=== PATIENT | male | born 1970 | race Caucasian/White ===

== ENCOUNTER 2016-07-31 22:58 | Inpatient (IN) | payer OTHER ==
[~2016-07-31] VITALS: Ht 180.3 cm; Wt 92.2 kg
[~2016-07-31 22:58] MED LIST: TRAM50TA2 PO
--- NOTE | 2016-08-01 03:52 | ERD ---
ER Documentation Chief Complaint Date/Time DATE: 08/01/16 TIME: 03:51 Chief Complaint headache and dizzy since last night and nauseated HPI 45-year-old male presents here in emergency department for complaints of headache, dizziness, discussed it as a spinning sensation and nausea started today. Patient is complaining of headache, throbbing pain, 6/10 scale, not better with anything, accompanied with nausea and dizziness. Patient is worried since he has history of liver cirrhosis, had a history of encephalopathy before. Patient denies any abdominal pain. Patient denies any flank pain. Patient does not have any vomiting. Patient denies any leg swelling. Patient denies any abdominal swelling. ROS All systems reviewed and are negative except as per history of present illness. Medications Home Meds Active Scripts Tramadol HCl (Tramadol HCl) 50 Mg Tablet, 50 MG PO Q4 Y for PAIN, #20 TAB Prov:MIKAL HAMPTON PA-C 02/09/16 Allergies Allergies: Coded Allergies: No Known Allergy (Unverified , 02/09/16) PMhx/Soc History of Surgery: No Anesthesia Reaction: No Hx Neurological Disorder: No Hx Respiratory Disorders: No Hx Cardiac Disorders: Yes (htn) Hx Psychiatric Problems: No Hx Miscellaneous Medical Probl: Yes (cirrhosis of liver ) Hx Alcohol Use: Yes Hx Substance Use: No Hx Tobacco Use: Yes FmHx Family History: No coronary disease, No diabetes, No other Physical Exam Vitals Vital Signs Date Time Temp Pulse Resp B/P Pulse Ox O2 Delivery O2 Flow Rate FiO2 07/31/16 23:33 98.3 77 18 130/62 99 Physical Exam GENERAL: The patient is well developed and appropriate for usual state of health, in no apparent distress. CHEST: Clear to auscultation bilaterally. There are no rales, wheezes or rhonchi. HEART: Regular rate and rhythm. No murmurs, clicks, rubs or gallops. No S3 or S4. ABDOMEN: Soft, nontender and nondistended. Good bowel sounds. No rebound or guarding. No gross peritonitis. No gross organomegaly or masses. No Bradshaw sign or McBurney point tenderness. BACK: No midline or flank tenderness. EXTREMITIES: Equal pulses bilaterally. There is no peripheral clubbing, cyanosis or edema. No focal swelling or erythema. Full range of motion. Grossly neurovascularly intact. NEURO: Alert and oriented. Cranial nerves 2-12 intact. Motor strength in all 4 extremities with 5/5 strength. Sensation grossly intact. Normal speech and gait. SKIN: There is no apparent rash or petechia. The skin is warm and dry. HEMATOLOGIC AND LYMPHATIC: There is no evidence of excessive bruising or lymphedema. No gross cervical, axillary, or inguinal lymphadenopathy. Result Diagram: 08/01/16 0428 08/01/16 0428 Results 24 hrs Laboratory Tests Test 08/01/16 04:27 08/01/16 04:28 08/01/16 04:31 Ammonia 101umol/l Alanine Aminotransferase (ALT/SGPT) 81IU/L Albumin 2.5g/dl Albumin/Globulin Ratio 0.55 Alkaline Phosphatase 244IU/L Anion Gap 13 Aspartate Amino Transf (AST/SGOT) 133IU/L Blood Morphology Comment Blood Urea Nitrogen 23mg/dl Calcium Level 7.8mg/dl Carbon Dioxide Level 25mmol/L Chloride Level 109mmol/L Creatinine 0.59mg/dl Direct Bilirubin 0.00mg/dl Globulin 4.50g/dl Glucose Level 83mg/dl Hematocrit 27.6% Hemoglobin 9.5g/dl Indirect Bilirubin 0.8mg/dl Lipase 356U/L Mean Corpuscular Hemoglobin 34.7pg Mean Corpuscular Hemoglobin Concent 34.4g/dl Mean Corpuscular Volume 100.9fl Mean Platelet Volume 11.2fl Platelet Count 2610^3/UL Potassium Level 4.2mmol/L Red Blood Count 2.7410^6/ul Red Cell Distribution Width 16.2% Sodium Level 143mmol/L Total Bilirubin 0.8mg/dl Total Protein 7.0g/dl White Blood Count 3.510^3/ul Urine Bilirubin NEGATIVE Urine Clarity CLEAR Urine Color YELLOW Urine Glucose NEGATIVE% Urine Hemoglobin TRACE Urine Ketones TRACE Urine Leukocyte Esterase NEGATIVE Urine Microscopic RBC 0-2/HPF Urine Microscopic WBC 0-2/HPF Urine Nitrite NEGATIVE Urine Specific [place]uck 1.025 Urine Squamous Epithelial Cells FEW Urine Total Protein NEGATIVE Urine Urobilinogen 1.0 E.U./dL Urine pH 6.0 PROCEDURE: CT BRAIN WITHOUT CONTRAST CLINICAL INDICATION: 45-year-old male with dizziness. TECHNIQUE: The study was performed utilizing [employer] 64-slice CT scanner. Direct axial sections were obtained from the foramen magnum to the vertex without the use of intravenous contrast material. Sagittal and coronal reformations were obtained. Automated exposure control and iterative reconstruction techniques were utilized for this examination. The images were viewed on a PACS workstation. CTD/vol = 45.0 mGy; Total Exam DLP = 810.3 mGy- cm. COMPARISON: None. FINDINGS: There is mild prominence of the sulci and cisternal spaces consistent with diffuse volume loss. Otherwise, the ventricles have a normal shape and position. There is no evidence for mass effect or midline shift. There are no intracranial areas of abnormal attenuation. There is no evidence for acute intra or extra-axial blood. The bony calvarium is intact. The right globe appears to be shrunken with diffuse increased density presumably from prior hemorrhage. There is minimal mucosal thickening within the ethmoid air cells bilaterally. No air-fluid levels are noted. The right mastoid air cells are sclerotic consistent with prior mastoid disease. The left mastoid air cells are without significant soft tissue. IMPRESSION: 1. Mild diffuse volume loss. 2. Shrunken right globe with diffuse increased density presumably from prior hemorrhage. Clinical correlation is necessary. 3. Minimal mucosal thickening ethmoid air cells. 4. Sclerotic right mastoid air cells consistent with prior mastoid disease. .Asael Arellano MD, MD Date Time Electronically viewed and signed by .Asael Arellano MD, on 08/01/2016 05:13 .M/ CC: DAMARIS BRICE PL[employer]ER TAILER I discussed this case with my attending physician, Dr. Kendall, recommending to give patient lactulose 40 g here in emergency department, repeat troponin level in 2 hours, will be signed out to morning attending physician for reevaluation of ammonia level. And will be transferred to ER 1 for further evaluation. Procedures/MDM Medical Decision Making: Patient's symptoms most likely consistent from elevated ammonia level, as per discussion with my attending physician, Dr. Kendall, patient will be given lactulose here in emergency department, repeat ammonia level will be done in 2 hours after taking medications, patient will be transferred to ER 1 for further evaluation after repeat ammonia level. Patient is stable at this time. No symptoms of any respiratory distress, no symptoms of any neurologic emergencies at this time. CT scan of the brainis not show any acute neurologic emergencies at this time. Departure Diagnosis: Primary Impression: Hyperammonemia Condition: DAMARIS Astudillo NP Aug 01, 2016 03:52
[2016-08-01 04:54] LABS: HEMATOCRIT 27.6 % (42.0-52.0); HEMOGLOBIN 9.5 g/dl (14.0-18.0); MEAN CORPUSCULAR HEMOGLOBIN 34.7 pg (29.0-33.0); MEAN CORPUSCULAR HGB CONC 34.4 g/dl (32.0-37.0); MEAN CORPUSCULAR VOLUME 100.9 fl (82.0-101.0); MEAN PLATELET VOLUME 11.2 fl (7.4-10.4); RED BLOOD COUNT 2.74 10^6/ul (4.70-6.10); RED CELL DISTRIBUTION WIDTH 16.2 % (11.5-14.5); UNCORRECTED WBC 3.5 10^3/ul (4.8-10.8); WHITE BLOOD COUNT 3.5 10^3/ul (4.8-10.8)
[2016-08-01 04:55] LABS: ALBUMIN 2.5 g/dl (3.3-4.9); POTASSIUM 4.2 mmol/L (3.5-5.1)
[2016-08-01 04:55] LABS: ADD UMIC YES; URINE BILIRUBIN (Dip) NEGATIVE (NEGATIVE); URINE BLOOD (Dip) TRACE (NEGATIVE); URINE COLOR YELLOW (YELLOW); URINE GLUCOSE (Dip) NEGATIVE (NEGATIVE); URINE KETONES (Dip) TRACE (NEGATIVE); URINE LEUKOCYTE ESTERASE (Dip) NEGATIVE (NEGATIVE); URINE NITRITE (Dip) NEGATIVE (NEGATIVE); URINE TOTAL PROTEIN (Dip) NEGATIVE (NEGATIVE); URINE UROBILINOGEN (Dip) 1.0 E.U./dL (0.1-1.0)
[2016-08-01 04:57] LABS: BILIRUBIN,INDIRECT 0.8 mg/dl (0-1.1); BILIRUBIN,TOTAL 0.8 mg/dl (0.2-1.3); CREATININE 0.59 mg/dl (0.61-1.24)
[2016-08-01 04:58] LABS: ALBUMIN/GLOBULIN RATIO 0.55; CALCIUM 7.8 mg/dl (8.4-10.2)
[2016-08-01 05:01] LABS: CONDITION 1
[2016-08-01 05:03] LABS: PLATELET COUNT 26 10^3/UL (140-440)
[2016-08-01 05:04] LABS: SQUAMOUS EPITHELIAL CELL,UR FEW; URINE RBCS 0-2 /HPF (0)
--- NOTE | 2016-08-01 05:13 | RADRPT ---
PROCEDURE: CT BRAIN WITHOUT CONTRAST CLINICAL INDICATION: 45-year-old male with dizziness. TECHNIQUE: The study was performed utilizing [employer] 64-slice CT scanner. Direct axial sections were obtained from the foramen magnum to the vertex without the use of intravenous contrast material. Sagittal and coronal reformations were obtained. Automated exposure control and iterativ e reconstruction techniques were utilized for this examination. The images were viewed on a PACS [employer]. CTD/vol = 45.0 mGy; Total Exam DLP = 810.3 mGy-cm. COMPARISON: None. FINDINGS: There is mild prominence of the sulci and cisternal spaces consistent with diffuse volume loss. Oth erwise, the ventricles have a normal shape and position. There is no evidence for mass effect or mid line shift. There are no intracranial areas of abnormal attenuation. There is no evidence for acut e intra or extra-axial blood. The bony calvarium is intact. The right globe appears to be shrunken w ith diffuse increased density presumably from prior hemorrhage. There is minimal mucosal thickening within the ethmoid air cells bilaterally. No air-fluid levels are noted. The right mastoid air dereck ls are sclerotic consistent with prior mastoid disease. The left mastoid air cells are without sign ificant soft tissue. IMPRESSION: 1. Mild diffuse volume loss. 2. Shrunken right globe with diffuse increased density presumably from prior hemorrhage. Clinical correlation is necessary. 3. Minimal mucosal thickening ethmoid air cells. 4. Sclerotic right mastoid air cells consistent with prior mastoid disease. .Asael Arellano MD, Date Time Electronically viewed and signed by .Asael Arellano MD, MD on 08/01/2016 05:13 .Sameer
[2016-08-01] MEDS ORDERED: LACTULOSE 30ML CUP PO ONE (05:30)
--- NOTE | 2016-08-01 06:24 | QN ---
Documentation Comment Patient has [employer] insurance and will be admitted to the panel team. I spoke with Dr. Pena for admission. The patient has hyperammonemia. The patient will be admitted to a medical surgical bed. KORI COLEMAN MD Aug 01, 2016 06:24
[2016-08-01] MEDS ORDERED: ONDANSETRON 4 MG INJ IV PRN ×2 (06:30→09:30)
[2016-08-01] MEDS ORDERED: ACETAMINOPHEN 325 MG TAB PO PRN (06:30)
[2016-08-01] MEDS ORDERED: FURO20TA3 PO (06:42)
[2016-08-01] MEDS ORDERED: MULTI PO (06:42)
[2016-08-01] MEDS ORDERED: OMEP20CA16 PO (06:43)
[2016-08-01] MEDS ORDERED: CALC1TAB32 PO (06:43)
[2016-08-01] MEDS ORDERED: SPIR25TA PO (06:43)
[2016-08-01] MEDS ORDERED: FOLI-49 PO (06:44)
[2016-08-01] MEDS ORDERED: ALBUTEROL/IPRATROPIUM (NEB) 3 ML AMP HHN PRN (09:30)
[2016-08-01] MEDS ORDERED: morphine 2 MG INJ IV PRN (09:30)
[2016-08-01] MEDS ORDERED: ACETAMINOPHEN 650 MG SUPP PR PRN (09:30)
[2016-08-01] MEDS ORDERED: NACL 0.9% 3 ML SYG IV SCH (09:30)
[2016-08-01 09:39] LABS: EOSINOPHILS # 0.4 10^3/ul (0.0-0.5); LYMPHOCYTES # 1.1 10^3/ul (0.8-2.9); MONOCYTE # 0.4 10^3/ul (0.3-0.9); NEUTROPHIL # 1.6 10^3/ul (1.6-7.5)
[2016-08-01 09:40] LABS: PLATELET ESTIMATE PLT APPEAR DECREASED
[2016-08-01] MEDS: LACTULOSE 30ML CUP PO SCH ×3 (11:18→23:57)
[2016-08-01] MEDS: DEXTROSE 5%-0.45% NACL 1,000 ML IV SCH ×2 (11:18→23:29)
[2016-08-01 14:26] VITALS: PULSE 57; TEMP 97.6
[2016-08-01 15:07] VITALS: Ht 180.3 cm; Wt 92.2 kg
[2016-08-01 15:42] VITALS: BP 106/61; RESP 20
[2016-08-01 16:32] LABS: LH ANALYZER COMMENTS 1
--- NOTE | 2016-08-01 18:17 | HP ---
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 CHIEF COMPLAINT: Lightheadedness and dizziness. HISTORY OF PRESENT ILLNESS: This is a 45-year-old gentleman with past medical history of hepatitis C, cirrhosis, hypertension, splenomegaly, right eye blindness, nicotine dependency, history of small -bowel obstruction status post exploratory laparotomy last year, who was recently discharged from __ ___ 2 days ago and he states that he has been compliant with his medication, although was continued to have some lightheadedness and dizziness and had a ground level fall. There was no trauma to his head or his body, but he was brought into the emergency room where he was found to have ammonia leve l of 101, alkaline phosphatase at 244, platelets of 26. He was treated with lactulose, Tylenol, and Zofran. The patient has been admitted to telemetry floor. He is awake, alert, oriented. He denie s any headache, dizziness, lightheadedness. No chest pain, palpitations, edema, orthopnea. No turner ge in visual acuity, diplopia, photophobia. No nausea, vomiting, diarrhea. No change in the color of the stool. No hematochezia, melena, or hematemesis. No neck pain, no restricted range of motion in upper or lower extremities. No heat and cold intolerance. No recent travel history. PAST MEDICAL AND SURGICAL HISTORY: As above per HPI. MEDICATIONS: 1. Calcium carbonate. 2. Folic acid. 3. Lasix. 4. Multivitamin. 5. Omeprazole. 6. Aldactone. ALLERGIES: NO KNOWN DRUG ALLERGIES. FAMILY HISTORY: Noncontributory. SOCIAL HISTORY: Positive for history of THC use, in remission. Positive for history of cigarette s moking. He used to drink, but he has been sober for the past 10 years. REVIEW OF SYSTEMS: As above per HPI, otherwise 12 review of systems has been found to be negative. PHYSICAL EXAMINATION: VITAL SIGNS: Temperature 97.7, pulse 60, respiration 20, blood pressure 106/61, oxygen saturation 1 00% in room air. GENERAL APPEARANCE: The patient is lying in bed comfortably without any distress. He is awake, melinda rt, oriented. He is able to answer my questions properly. EYES/ENT: Conjunctivae and lids are normal. Pupils are normal. Extraocular normal. Hearing gross ly normal. Lips are normal. Oral mucosa is moist. NECK: Supple. Trachea is midline. No lymphadenopathy. RESPIRATORY: Respiratory effort is normal. Clear to auscultate bilaterally. CARDIOVASCULAR: Normal S1, S2. Regular rhythm and rate. No murmur, no bruits, no edema. Peripher al pulses, radial pulses palpable. Cap refill is normal. CHEST: Normal expansion of thorax during inspiration. GASTROINTESTINAL: Abdomen is soft, nontender, not distended. Bowel sound is present. No guarding or rebound. GENITOURINARY: Deferred. MUSCULOSKELETAL: Upper and lower extremities within normal limits. Full range of motion, strength 5/5 in both upper and lower extremities. NEUROLOGIC: Cranial nerves II through XII are grossly intact. PSYCHIATRIC: Normal judgment and insight. Alert and oriented x3. Mood and affect is normal. LABORATORY WORK: WBC 3.5, hemoglobin 9.5, hematocrit 27.6, platelets 26, MCV 100.9. Sodium 143, po tassium 4.2, chloride 109, bicarbonate 25, BUN 23, creatinine 0.59, glucose 83, calcium 7.8, AST 133 , ALT 81, alkaline phosphatase 244, ammonia 101, albumin 2.5, globulin 4.5, lipase 356. Urinalysis negative. ASSESSMENT AND PLAN: 1. Hepatic encephalopathy. The patient has been started on lactulose. We will follow up ammonia l evel. 2. History of cirrhosis secondary to hepatitis C, stable. 3. Thrombocytopenia with platelet of 26. This is likely secondary to hepatitis C and cirrhosis. T here is no evidence of bleeding. We will continue to monitor. We will transfuse platelets if patie nt's platelet is less than 20 or if there is any evidence of bleeding. 4. Microcytic anemia secondary to cirrhosis. 5. Essential hypertension, well controlled. 6. Transaminitis and the history of cirrhosis, stable. 7. Dehydration. We will place the patient on IV hydration. We will follow renal panel in a.m. 8. Deep venous thrombosis prophylaxis on sequential compression device. Refrain from using any pha rmacologic deep venous thrombosis prophylaxis secondary to thrombocytopenia. 9. Gastrointestinal prophylaxis, on Pepcid. 10. We will continue to monitor patient closely. Further recommendations, management, and treatmen t as per clinical course. Total amount of time that was spent for evaluation of patient and admission workup, 40 minutes. Dictated By: VALERI AMIN/LEX Conf#: [id number] [facility]#: [id number]
[2016-08-01 19:30] VITALS: BP 121/68; RESP 20
[2016-08-01] MEDS: FAMOTIDINE 20 MG INJ IV SCH (21:57)
[2016-08-02] MEDS: DEXTROSE 5%-0.45% NACL 1,000 ML IV SCH (04:47)
[2016-08-02] MEDS: LACTULOSE 30ML CUP PO SCH (05:58)
[2016-08-02] MEDS ORDERED: PANTOPRAZOLE (EC) 40 MG TAB PO SCH (06:00)
[2016-08-02 06:25] LABS: BASOPHILS % 0.6 % (0.0-2.0); EOSINOPHILS # 0.3 10^3/ul (0.0-0.5); EOSINOPHILS % 12.7 % (0.0-7.0); HEMATOCRIT 26.4 % (42.0-52.0); HEMOGLOBIN 9.1 g/dl (14.0-18.0); LYMPHOCYTES # 0.8 10^3/ul (0.8-2.9); LYMPHOCYTES % 29.2 % (15.0-51.0); MEAN CORPUSCULAR HEMOGLOBIN 34.7 pg (29.0-33.0); MEAN CORPUSCULAR HGB CONC 34.3 g/dl (32.0-37.0); MEAN CORPUSCULAR VOLUME 101.1 fl (82.0-101.0); MEAN PLATELET VOLUME 11.8 fl (7.4-10.4); MONOCYTE # 0.4 10^3/ul (0.3-0.9); MONOCYTES % 14.4 % (0.0-11.0); NEUTROPHIL # 1.1 10^3/ul (1.6-7.5); NEUTROPHILS % 43.1 % (39.0-77.0); RED BLOOD COUNT 2.61 10^6/ul (4.70-6.10); RED CELL DISTRIBUTION WIDTH 16.4 % (11.5-14.5); UNCORRECTED WBC 2.6 10^3/ul (4.8-10.8); WHITE BLOOD COUNT 2.6 10^3/ul (4.8-10.8)
[2016-08-02 06:42] LABS: CONDITION 1; LH ANALYZER COMMENTS 1; SUSPECT 1
[2016-08-02 06:43] LABS: PLATELET COUNT 19 10^3/UL (140-440)
[2016-08-02 06:54] LABS: ALBUMIN 2.2 g/dl (3.3-4.9); POTASSIUM 3.6 mmol/L (3.5-5.1)
[2016-08-02 06:55] LABS: ALBUMIN/GLOBULIN RATIO 0.53
[2016-08-02 06:58] LABS: BILIRUBIN,INDIRECT 0.6 mg/dl (0-1.1); BILIRUBIN,TOTAL 0.6 mg/dl (0.2-1.3); CALCIUM 7.5 mg/dl (8.4-10.2); CREATININE 0.59 mg/dl (0.61-1.24); MAGNESIUM 1.7 mg/dl (1.7-2.5); PHOSPHORUS 3.7 mg/dl (2.5-4.9); TOTAL PROTEIN 6.3 g/dl (6.1-8.1)
[2016-08-02 07:32] VITALS: BP 107/51; RESP 18
[2016-08-02] MEDS: FAMOTIDINE 20 MG INJ IV SCH (08:46)
[2016-08-02] MEDS ORDERED: FUROSEMIDE 20 MG TAB PO SCH (09:00)
[2016-08-02] MEDS ORDERED: CALCIUM/VITAMIN D (500/200) TAB PO SCH (09:00)
[2016-08-02] MEDS ORDERED: SPIRONOLACTONE 25 MG TAB PO SCH (09:00)
[2016-08-02] MEDS ORDERED: MULTIVITAMINS THERAPEUTIC TAB PO SCH (09:00)
[2016-08-02] MEDS ORDERED: INFLUENZA VIRUS VACCINE 0.5 ML (DISPENSING) IM* ONE (09:00)
[2016-08-02] MEDS ORDERED: FOLIC ACID 1 MG TAB PO SCH (09:00)
--- NOTE | 2016-08-02 11:10 | PDOCDIS ---
Discharge Instructions CONDITION Patient Condition: Good HOME CARE INSTRUCTIONS: Special Diet: 2gm Sodium Diet ACTIVITY: Activity Restrictions: No Restrictions FOLLOW UP/APPOINTMENTS Appointments Follow up with PCP tomorrow VALERI JUAN MD Aug 02, 2016 11:10
[2016-08-02] MEDS ORDERED: FOLI-49 PO (11:12)
[2016-08-02] MEDS ORDERED: MULTI PO (11:12)
[2016-08-02] MEDS ORDERED: LACT20SO12 PO (11:12)
--- NOTE | 2016-08-02 19:38 | DS ---
DATE OF ADMISSION: 08/01/2016 DATE OF DISCHARGE: 08/02/2016 CONSULTANTS: None. DISCHARGE DIAGNOSES: 1. Hepatic encephalopathy, likely secondary to noncompliance with lactulose, resolved. 2. History of cirrhosis secondary to hepatitis C. 3. Thrombocytopenia. There is no evidence of bleeding. The patient is to follow up with his prima care physician and [facility] nurse as outpatient. 4. Microcytic anemia secondary to cirrhosis, stable. 5. Essential hypertension, well controlled. 6. Transaminitis with history of cirrhosis, stable. 7. Dehydration, status post intravenous fluid, resolved. LABORATORY: WBC 2.6, hemoglobin 9.1, hematocrit 26.4, platelets 19. Sodium 141, potassium .6, chloride 108, bicarbonate 26, BUN 14, creatinine 0.59, glucose 101, calcium 7.5. Ammonia level 25 and 74. AST 135, ALT 80, alkaline phosphate 211. HOSPITAL COURSE: This is a 45-year-old gentleman with past medical history of hepatitis C, cirrhosi s, hypertension, splenomegaly, right eye blindness, nicotine dependency, history of small-bowel obst ruction, status post exploratory laparotomy last year, thrombocytopenia secondary to history of live r disease who [facility] and he stated that he has been compliant with his medication, although he has been only taking his lactulose once a day instead of 3 times a day. He presented to [facility] secondary to lightheadedness and dizziness and had an almost ground level fall. There was no trauma to his head or body. He was brought into the emergen cy room where he was found to have ammonia of 101, alkaline phosphatase at 244, platelets 26. He wa s given lactulose, Zofran, Tylenol and was admitted to med/surg. He was awake, alert, oriented. Up on my evaluation, he was started on a low salt diet, he was continued on lactulose. This morning, kevyn lora is awake, alert, oriented. He is able to ambulate without any difficulty. He has been autumn nt that he wants to be discharged to home because he has several appointments today with his doctors and his vitals have been stable with temperature 98.1, pulse 59, respirations 18, blood pressure 10 7/51 and 121/60, oxygen 99%. The patient has been able to tolerate oral intake, has been able to am bulate with no difficulty, no gait imbalance. At this time, patient is medically stable to be disch arged home with a close followup with his primary care physician as outpatient. He has an appointme nt tomorrow as per his statement. MEDICATIONS AT TIME OF DISCHARGE: 1. Folic acid 1 mg. 2. Lactulose 20 mg t.i.d. 3. Multivitamin 1 mg. 4. Calcium carbonate. 5. Lasix 20 mg. 6. Omeprazole 20 mg. 7. Aldactone 50 mg. ALLERGIES: NO KNOWN DRUG ALLERGIES. DISPOSITION: Home. CONDITION: Stable. Dictated By: VALERI JUAN MD PN/NTS Conf#: [id number] DID#: [id number]
== END 2016-08-02 12:45 | disposition home or self-care (01) | DRG 442 ==
LOC: FTE 22:58 → MS2 08-01 06:23
PROVIDERS: ADMIT Internal Medicine; ATTEND Internal Medicine
DX: K72.90 Hepatic failure, unspecified without coma (principal); E72.20 Disorder of urea cycle metabolism, unspecified; D69.59 Other secondary thrombocytopenia; I10 Essential (primary) hypertension; F17.210 Nicotine dependence, cigarettes, uncomplicated; D50.8 Other iron deficiency anemias; K74.60 Unspecified cirrhosis of liver; B18.2 Chronic viral hepatitis C; H54.41 Blindness, right eye, normal vision left eye; Z91.14 Patient's other noncompliance with medication regimen; E86.0 Dehydration; R74.0 Nonspecific elevation of levels of transaminase and lactic acid dehydrogenase [LDH]
CPT/HCPCS: 36415; 70450; 80053; 81001; 81003; 82140; 83690; 83735; 84100; 85025; 87081; 90686; J7042